=== PATIENT | male | born 1980 | race Caucasian/White ===

== ENCOUNTER 2017-08-22 20:15 | Inpatient (IN) | payer BC, OTHER ==
[~2017-08-22] VITALS: Ht 175.3 cm; Wt 72.6 kg
[2017-08-23 00:10] VITALS: BP 139/83
--- NOTE | 2017-08-23 00:10 | NUR ---
Preassessment Note: Pt seen in [facility]. Pt is 37M who reported taking Methamphetamines currently with a history of Opiate, Benzo, and ETOH use in the past. BP: 139/83 HR: 106 T:98.2 RR:18 SpO2:95%. Pt stated he came from his parent's house to [facility]. Explained rules and policies of the unit. Pt remains in stable condition at this time. Will admit to [facility].
[2017-08-23] MEDS ORDERED: MAG HYDROX/AL HYDROX/SIMETH 30 ML LIQUID UDC PO PRN (00:15)
[2017-08-23] MEDS ORDERED: IBUPROFEN 400 MG TABLET PO PRN (00:15)
[2017-08-23] MEDS ORDERED: MAGNESIUM HYDROXIDE 30 ML LIQUID UDC PO PRN (00:15)
[2017-08-23] MEDS ORDERED: DICYCLOMINE HCL 20 MG TABLET PO PRN (00:15)
[2017-08-23] MEDS ORDERED: MIRALAX 17 GM POWD.PACK PO PRN (00:15)
[2017-08-23] MEDS ORDERED: THIAMINE HCL 200 MG/2 ML VIAL IM ONE (00:15)
[2017-08-23] MEDS ORDERED: ONDANSETRON 4 MG/2 ML VIAL IM PRN (00:15)
[2017-08-23] MEDS ORDERED: LORAZEPAM 1 MG TABLET PO PRN (00:15)
[2017-08-23] MEDS ORDERED: LOPERAMIDE HCL 2 MG CAPSULE PO PRN ×2 (00:15)
[2017-08-23] MEDS ORDERED: ONDANSETRON ODT 4 MG TAB.RAPDIS SL PRN (00:15)
[2017-08-23] MEDS ORDERED: LORAZEPAM 2 MG/1 ML VIAL IM PRN (00:15)
[2017-08-23] MEDS ORDERED: ACETAMINOPHEN 325 MG TABLET PO PRN (00:15)
--- NOTE | 2017-08-23 00:20 | NUR ---
Admission Note: Pt admitted to [facility] at 0020. Pt is 37M, AOx4 without s/s of acute distress noted. Weight: 160lbs Height: 5'9". Pt noted with NKA. Pt reported current Methamphetamine use and dependence. Initial CIWA 10 for hx of ETOH use. Pt reported no s/s of severe withdrawals. Pt uses 1g to "an 8-ball" of Methamphetamines daily for the past 3 months. Pt uses Methamphetamines mainly by smoking but has also used IV or rectal. Pt last used 0.2g of Methamphetamines on 08/22/17 at 2100. Pt stated he has a hx of using Heroin, [place], Morphine, and Hydrocodone Opiates 2 weeks ago but was recently at detox. Pt also stated he has a hx of taking unspecified Benzos 14-15 days ago, and a hx of drinking ETOH ([place]) 5 days ago. 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 Pt brought home medication: Clotrimazole cream and Triple ATB ointment for current rash on bilateral lower legs. Pictures taken and placed in chart. Pending assessment by MD. Pt stated left calf pain 8/10 level at this time. Pt stated he felt cramping while walking to the intake office but felt like it would go away. Will reassess. Respirations even and unlabored. Bowel sounds active x4 quadrants. Pt following regular diet at home. Pt states that he smokes 10-12 cigarettes daily but refuses smoking-cessation at this time. Pt denies any suicidal ideation. Encouraged pt to verbalize feelings. All needs attended and met. Call light functioning and within reach. Will continue to monitor.
[2017-08-23] MEDS: diphenhydrAMINE 50 MG CAPSULE PO PRN ×2 (01:39→20:56)
[2017-08-23] MEDS: LORAZEPAM 1 MG TABLET PO PRN ×2 (01:39→09:38)
--- NOTE | 2017-08-23 01:39 | NUR ---
PRN Ativan and PRN Benadryl: Pt noted with moderate anxiety. CIWA 10. 1mg Ativan PRN given as ordered. Pt also stated inability to sleep. 50mg Benadryl PRN given as ordered. Will continue to monitor.
[2017-08-23] MEDS ORDERED: LORAZEPAM 1 MG TABLET ONE (01:48)
[2017-08-23] MEDS ORDERED: diphenhydrAMINE 50 MG CAPSULE ONE (01:48)
[2017-08-23] MEDS ORDERED: THIAMINE HCL 200 MG/2 ML VIAL ONE (01:48)
[2017-08-23 02:30] LABS: BASOPHILS % (AUTO) 0.5 % (0.0-2.0); EOSINOPHILS # (AUTO) 0.1 K/uL (0.0-0.7); EOSINOPHILS % (AUTO) 1.3 % (0.0-7.0); HEMATOCRIT 45.3 % (36.7-47.1); HEMOGLOBIN 15.9 g/dL (12.5-16.3); LYMPHOCYTES # (AUTO) 2.8 K/uL (20.0-40.0); LYMPHOCYTES % (AUTO) 30.4 % (20.5-51.5); MEAN CORPUSCULAR HEMOGLOBIN 30.9 uug (23.8-33.4); MEAN CORPUSCULAR HGB CONC 35 g/dL (32.5-36.3); MONOCYTES # (AUTO) 0.8 K/uL (2.0-10.0); MONOCYTES % (AUTO) 9.1 % (0.0-11.0); NEUTROPHILS # (AUTO) 5.4 K/uL (1.8-8.9); NEUTROPHILS % (AUTO) 58.7 % (38.5-71.5); PLATELET COUNT (AUTO) 286 K/uL (152-348); RED BLOOD CELL COUNT(AUTO) 5.15 MIL/uL (4.06-5.63); WHITE BLOOD COUNT (AUTO) 9.2 K/uL (3.6-10.2)
[2017-08-23 02:45] LABS: ALANINE AMINOTRANSFERASE 98 U/L (16-63); ALKALINE PHOSPHATASE 65 U/L (50-136); AMYLASE 48 U/L (25-115); ASPARTATE AMINOTRANSFERASE 78 U/L (15-37); BILIRUBIN,TOTAL 0.8 mg/dL (0.2-1.0); CARBON DIOXIDE 30 mmol/L (21-32); CHLORIDE 100 mmol/L (98-107); GLUCOSE 99 mg/dL (74-106); LIPASE 273 U/L (73-393); MAGNESIUM 2.2 mg/dL (1.8-2.4); POTASSIUM 3.8 mmol/L (3.5-5.1); UREA NITROGEN, BLOOD 21 mg/dL (7-18)
[2017-08-23 02:56] LABS: THYROID STIMULATING HORMONE 0.715 mIU/mL (0.358-3.740)
[2017-08-23 03:03] LABS: *AMPHETAMINE, URINE POSITIVE (NEGATIVE); *BARBITURATE, URINE NEGATIVE (NEGATIVE); *CANNABINOID, URINE NEGATIVE (NEGATIVE); *COCCAINE, URINE NEGATIVE (NEGATIVE); *OPIATE, URINE NEGATIVE (NEGATIVE); *PHENCYCLIDINE SCREEN,URINE NEGATIVE (NEGATIVE)
[2017-08-23 03:07] LABS: ETHANOL < 3 MG/DL (0-0)
[2017-08-23] MEDS ORDERED: NEOM14.216 TP (03:53)
[2017-08-23] MEDS ORDERED: CLOT15CR4 TP (03:53)
[2017-08-23] MEDS ORDERED: NEOM28.3 TP (03:53)
[2017-08-23] MEDS ORDERED: NAPH30DR OP (03:56)
[2017-08-23] MEDS ORDERED: CLOT14.2 TP (03:56)
[2017-08-23] MEDS ORDERED: orajel (03:56)
[2017-08-23] MEDS ORDERED: [UNRECOGNIZED DRUG - CODE] TP (03:56)
[2017-08-23 04:00] VITALS: BP 137/86
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
--- NOTE | 2017-08-23 07:12 | NUR ---
End of Shift Notes: Pt is 37M, admitted for Methamphetamine Dependence on 08/23/17. Pt is full code, on regular diet, and on fall precautions. Pt noted with NKA. Pt reported hx of ear infection and methamphetamine-induced psychosis. Pt slept for 8 hours. Pt is currently on PRN Ativan to manage withdrawal symptoms. Last CIWA was 8 at 0400. Pt received Ativan PRN for CIWA 10 and Benadryl for sleep. Fall and Sz precautions observed. Bed in lowest position. Side rails up x2. Call light functioning and within reach. All needs attended and met. Will endorse to day shift nurse.
--- NOTE | 2017-08-23 07:30 | NUR ---
START O SHIFT Received report from night nurse. 28 year old male patient admitted on 08/22/17 for methamphetamine withdrawals. Pt also reports he stopped taking opioids 8 days ago, stopped drinking 5 days ago and last took benzos 14-15 days ago. Hx of meth-induced psychosis and ear infections. Denies hx of seizures. Pt v/s remain wnl. PRN Ativan 1mg and Benadryl administered at night and effective. Pt slept 7-8 hours. All needs met, will continue to monitor.
[2017-08-23 08:23] VITALS: BP 122/82
--- NOTE | 2017-08-23 09:00 | NUR ---
PPD NON-ADMIN Pt refuses PPD test and states "I got it 9 days ago, and I was negative."
--- NOTE | 2017-08-23 09:31 | NUR ---
PRN ATIVAN Pt states he is anxious, calming reassurance provided and ineffective. CIWA is 6 related to anxiety and agitation. PRN Ativan 1mg administered as ordered, will reassess.
[2017-08-23] MEDS: THIAMINE HCL 100 MG TABLET PO SCH (09:33)
[2017-08-23] MEDS: FOLIC ACID 1 MG TABLET PO SCH (09:33)
[2017-08-23] MEDS: MULTIVITAMINS,THERAPEUTIC TABLET PO SCH (09:33)
[2017-08-23] MEDS ORDERED: INFLUENZA VACCINE 2017-2018 0.5 ML DISP.SYRIN IM ONE (10:00)
--- NOTE | 2017-08-23 10:41 | NUR ---
REASSESSMENT Pt CIWA is 3, decreased anxiety and agitation, medication effective.
[2017-08-23 12:33] VITALS: BP 129/77
[2017-08-23 17:00] VITALS: BP 133/68
[2017-08-23] MEDS: CLOTRIMAZOLE 1% CREAM 30 GM TUBE TP SCH (17:21)
--- NOTE | 2017-08-23 18:57 | NUR ---
END OF SHIFT Patient continues to be compliant, no taper medications started. Pt continues on PRNs. PRN Ativan 1mg administered and effective. Pt socializes with peers and attends groups. Pt started on topical ointments for skin rash. V/S stable with elevated heart rate of 107 r/t anxiety. Pt ate 100% of meals and reports BM x1. All needs met at this time, night nurse to continue monitoring.
--- NOTE | 2017-08-23 19:30 | NUR ---
Start of Shift Notes: Report received from day shift nurse. Pt is a 37M, admitted for Methamphetamine Dependence on 08/23/17. Pt was in bed with eyes closed upon start of shift. Pt is AOx4 without s/s of acute distress noted. Pt is full code, on regular diet, and on fall precautions. Pt noted with NKA. Pt reported hx of ear infection and methamphetamine-induced psychosis. Pt is currently on PRN medications to manage withdrawal symptoms. Per day shift nurse, pt's last CIWA was 3. Bed in lowest position. Side rails up x2. Call light functioning and within reach. All needs attended and met. Will continue to monitor.
[2017-08-23 20:00] VITALS: BP 118/71
--- NOTE | 2017-08-23 20:56 | NUR ---
PRN Benadryl: Pt unable to sleep. PRN Benadryl given as ordered.
[2017-08-23] MEDS: MUPIROCIN 2% OINT 22 GM TUBE TP SCH (20:57)
[2017-08-23] MEDS ORDERED: MUPIROCIN 2% CREAM 15 GM TUBE TOP SCH (21:00)
[2017-08-24] VITALS (7 sets, daily range): BP systolic 98–124; BP diastolic 48–79
[2017-08-24] MEDS: CLONIDINE HCL 0.1 MG TABLET PO PRN ×2 (02:44→20:35)
--- NOTE | 2017-08-24 02:44 | NUR ---
Clonidine PRN: Pt went to the nurses station and stated he was woken up. Pt noted with anxiety from being awake. Clonidine PRN given as ordered. Will continue to monitor.
--- NOTE | 2017-08-24 03:45 | NUR ---
Clonidine PRN Reassessment: BP 120/76 HR 80. Pt stated relief from anxiety and is about to go back to sleep. PRN Clonidine effective.
--- NOTE | 2017-08-24 07:02 | NUR ---
End of Shift Notes: Pt is 37M, admitted for Methamphetamine Dependence on 08/23/17. Pt is full code, on regular diet, and on fall precautions. Pt noted with NKA. Pt reported hx of ear infection and methamphetamine-induced psychosis. Pt slept for 7 hours. Pt is currently on PRN Ativan to manage withdrawal symptoms. Last CIWA was 1 at 0400. Pt received PRN Benadryl for sleep and PRN Clonidine for anxiety. Fall and Sz precautions observed. Bed in lowest position. Side rails up x2. Call light functioning and within reach. All needs attended and met. Will endorse to day shift nurse.
--- NOTE | 2017-08-24 07:30 | NUR ---
START OF SHIFT Pt 37 y/o male admitted for meth dependence. Pt received in room awake watching television. Pt alert and oriented to name, place, and time. [place]. Skin warm and dry to touch. Respirations even and unlabored. No hand tremors noted. It was reported that pt slept for 7 hours last night. Bed on lowest position with side rails x2 up for safety. Call light within reach. No distress noted at this time.
[2017-08-24] MEDS: MULTIVITAMINS,THERAPEUTIC TABLET PO SCH (08:47)
[2017-08-24] MEDS: THIAMINE HCL 100 MG TABLET PO SCH (08:47)
[2017-08-24] MEDS: FOLIC ACID 1 MG TABLET PO SCH (08:47)
[2017-08-24] MEDS: MUPIROCIN 2% OINT 22 GM TUBE TP SCH ×2 (08:48→20:36)
[2017-08-24] MEDS: CLOTRIMAZOLE 1% CREAM 30 GM TUBE TP SCH ×2 (08:49→16:24)
[2017-08-24] MEDS ORDERED: TUBERCULIN,PURIF.PROT.DERIV. 5 TU/0.1 ML TEST ID ONE (09:00)
--- NOTE | 2017-08-24 18:52 | NUR ---
END OF SHIFT Pt 37 y/o male admitted for methamphetamine dependence. Pt alert and oriented to name, place, and time. [place]. Skin warm and dry to touch. Respirations even and unlabored. No hand tremors noted. Pt observed mostly isolative to room today and patio. Pt did not attend group activity. Pt was seen by MD today. Pt medication compliant and tolerated well. No ASE noted. Bed on lowest position with side railsx 2 up for safety. Call light within reach. No distress noted at this time. Pt is scheduled to be discharged tomorrow.
--- NOTE | 2017-08-24 20:00 | NUR ---
Start of Shift Notes Received 37 y/o male admitted on 08/23/2017 for meth dependence. Px is A&Ox4. Px is on Full Code, Regular diet and has NKA. During the rounds at 1999, px has no complaints just requested pill to help him sleep tonight. To D/C tomorrow 08/25/2017. Respirations are even and unlabored. Bed on lowest position with side rails x2 up for safety and call light within reach. We'll continue to monitor.
[2017-08-24] MEDS: diphenhydrAMINE 50 MG CAPSULE PO PRN (20:35)
--- NOTE | 2017-08-24 20:35 | NUR ---
PRN meds Px complained of burning/pins and needles on both feet 3/10. Px asked for pill to help him sleep tonight. Benadryl 50 mg/cap, 1 cap given PO; Clonidine 0.1 mg/tab, 1 tab given PO and Motrin 400 mg/tab, 1 tab given PO as PRN meds. We'll continue to monitor.
[2017-08-25] VITALS: BP 101/60
[2017-08-25 04:00] VITALS: BP 100/60
--- NOTE | 2017-08-25 04:00 | NUR ---
CIWA deferred CIWA deferred at 0000 and 0400 due to the px is asleep, to assess if the px is awake per doctor's order. We'll continue to monitor.
--- NOTE | 2017-08-25 07:10 | NUR ---
End of Shift Notes 37 y/o male admitted on 08/23/2017 for meth dependence. Px is A&Ox4. Px is on Full Code, Regular diet and has NKA. During the shift, Px complained of burning/pins and needles on both feet 10/18. Px asked for pill to help him sleep tonight. Benadryl 50 mg/cap, 1 cap given PO; Clonidine 0.1 mg/tab, 1 tab given PO and Motrin 400 mg/tab, 1 tab given PO as PRN meds. Px to D/C today 08/25/2017. Oral intake of 1 L, voided 3x, No BM. Slept for 8 hours. Respirations are even and unlabored. Bed on lowest position with side rails x2 up for safety and call light within reach. We'll continue to monitor.
--- NOTE | 2017-08-25 07:15 | NUR ---
Start of Shift Notes Received 37 y/o male admitted on 08/23/2017 for methamphetamine withdrawal. Pt is on Full Code, Regular diet and has NKA. Patient asleep in bed at this time, Respirations are even and unlabored. PRN benadryl, motrin and clonidine given on PM shift, last CIWA 3 @ 2000. Bed on lowest position with side rails x2 up for safety and call light within reach. Patient to discharge to treatment Center " able to change " this morning. Will continue to monitor.
[2017-08-25] MEDS: THIAMINE HCL 100 MG TABLET PO SCH (08:21)
[2017-08-25] MEDS: FOLIC ACID 1 MG TABLET PO SCH (08:21)
[2017-08-25] MEDS: MULTIVITAMINS,THERAPEUTIC TABLET PO SCH (08:21)
[2017-08-25] MEDS: CLOTRIMAZOLE 1% CREAM 30 GM TUBE TP SCH (08:22)
[2017-08-25] MEDS: MUPIROCIN 2% OINT 22 GM TUBE TP SCH (08:29)
--- NOTE | 2017-08-25 08:40 | NUR ---
PRN MEDS PRN TYLENOL 650 MG PO GIVEN FOR PAIN IN FEET 5/10 AND 4 MG IMMODIUM FOR STOMACH CRAMPS WILL REASSESS
--- NOTE | 2017-08-25 09:25 | NUR ---
PRN REASSESS PATIENT STATES TYLENOL 650 MG PO REDUCED HIS FOOT PAIN TO 3/10 AND STOMACH CRAMPS ARE LESS WITH THE 4MG PO IMMODIUM, PT LEAVING FLOOR TO DISCHARGE AT THIS TIME
--- NOTE | 2017-08-25 09:28 | NUR ---
PATIENT DISCHARGE PT WAS ADMITTED FOR METHAMPHETAMINE WITHDRAWAL ON 08/22/17. PATIENT HAD A RECENT CIWA 3. LAST BM THIS AM 08/25/17 PATIENT VERBALIZES UNDERSTANDING OF DISCHARGE INSTRUCTIONS, MEDICATIONS AND ALL BELONGINGS RETURNED TO PATIENT. ALL NEEDS ADDRESSED AT THIS TIME. PATIENT HAS NO COMPLAINTS AT THIS TIME, PATIENT AMBULATED OFF THE UNIT AND LEFT THE FACILITY VIA " [facility] " [facility]SPORT FOR " ABLE TO CHANGE "
[2017-08-26 03:07] LABS: HEPATITIS B SURFACE AG Negative (Negative)
== END 2017-08-25 09:28 | disposition other institution (70) | DRG 895 ==
LOC: SRC 22:55
PROVIDERS: ADMIT Internal Medicine; ATTEND Internal Medicine
PROC: HZ2ZZZZ Detoxification Services for Substance Abuse Treatment (ICD-10-PCS; principal; 2017-08-22)
PROC: HZ41ZZZ Group Counseling for Substance Abuse Treatment, Behavioral (ICD-10-PCS; 2017-08-23)
DX: F15.23 Other stimulant dependence with withdrawal (principal); F17.210 Nicotine dependence, cigarettes, uncomplicated; F41.9 Anxiety disorder, unspecified; F32.9 Major depressive disorder, single episode, unspecified; R74.0 Nonspecific elevation of levels of transaminase and lactic acid dehydrogenase [LDH]
CPT/HCPCS: 36415; 70030-TC; 80307; 80324; 83690; 83735; 84443; 85025; 86592; 86705; 86803; 87340; 90686; G0480; J3411; Q0163